=== PATIENT | male | born 1995 | race Caucasian/White ===

== ENCOUNTER 2020-11-14 12:07 | Emergency (ER) | payer OTHER ==
[~2020-11-14] VITALS: Ht 177.8 cm; Wt 84.1 kg
[2020-11-14 12:58] VITALS: BP 128/75
[2020-11-14] MEDS ORDERED: proparacaine 0.5% ophthalmic drops 15ml EACHEYE ONE (13:05)
[2020-11-14] MEDS ORDERED: ERYT1OIN6 RIGHTEYE (13:21)
== END 2020-11-14 13:20 | disposition home or self-care (01) ==
LOC: ER 12:08
DX: S05.01XA Injury of conjunctiva and corneal abrasion without foreign body, right eye, initial encounter (principal); H57.11 Ocular pain, right eye; H53.8 Other visual disturbances; H53.141 Visual discomfort, right eye; Z72.89 Other problems related to lifestyle; Z79.2 Long term (current) use of antibiotics; X58.XXXA Exposure to other specified factors, initial encounter; Y93.89 Activity, other specified; Y92.89 Other specified places as the place of occurrence of the external cause; Y99.8 Other external cause status
CPT/HCPCS: 99283

== ENCOUNTER 2021-02-13 13:44 | Emergency (ER) | payer OTHER ==
[~2021-02-13] VITALS: Ht 177.8 cm; Wt 77.3 kg
[2021-02-13 14:35] VITALS: BP 122/86
[2021-02-13] MEDS ORDERED: BENZ-38 PO (14:56)
[2021-02-13] MEDS ORDERED: ALBU8HFA PO (14:56)
== END 2021-02-13 17:10 | disposition home or self-care (01) ==
LOC: ER 13:44
DX: T78.40XA Allergy, unspecified, initial encounter (principal); R09.89 Other specified symptoms and signs involving the circulatory and respiratory systems; R05.9 Cough, unspecified; Z72.89 Other problems related to lifestyle; Z79.899 Other long term (current) drug therapy; X58.XXXA Exposure to other specified factors, initial encounter
CPT/HCPCS: 99283